=== PATIENT | male | born 1945 | race Caucasian/White ===

== ENCOUNTER 2021-05-12 11:47 | Outpatient (REF) | payer MEDICARE, SELFPAY | END 2021-05-12 11:48 | disposition home or self-care (01) | LOC: HO.HMGCLDS 11:47 | PROVIDERS: PCP Internal Medicine; Visit Provider Internal Medicine | DX: Z20.822 Contact with and (suspected) exposure to COVID-19 (principal) | CPT/HCPCS: C9803; U0003; U0005 ==

== ENCOUNTER 2023-08-20 11:02 | Outpatient (AMB) | payer MEDICARE, SELFPAY ==
--- NOTE | 2023-08-20 11:11 | MHC.OFFVIS ---
Intake Vital Signs 08/20/23 11:12 Height 5 ft 11 in Weight 213 lb 6.519 oz BMI 29.8 BP 181/80 H Blood Pressure Location Lt brachial Position Sitting Pulse 51 Pulse Source Pulse Oximeter Intake Visit Reasons: Dysphagia Intake Note: Pt presents to the office today for a new patient visit for dysphagia. Pt states he is having difficulty swallowing especially when he is eating or drinking that started after his heart surgery. Pt denies any other GI concerns at this time. Allergies No Known Allergies Allergy (Verified 08/20/23 11:13) HPI Dysphagia HPI Details 78-year-old male with past medical history of hypertension, hypercholesteremia, open heart surgery in 2019, aortic valve stenosis, arteriosclerotic heart disease, CKD, DJD, diabetes is here today for initial consultation. Patient was sent to us for evaluating of his recent symptoms. Patient has been having trouble swallowing, states that it does not happen all the time. Mainly happens when he eats meat. Patient denies having symptoms of any acid reflux, however he admits to having dyspepsia when he eats tomato sauce or certain food. Patient remembers that the last time he had trouble swallowing was after he had few beers and sampled few different Larsen's. Patient is not taking any PPI's or H2 blockers. Patient denies eating late at night. Patient reports that he is moving his bowels without any issues. Denies any melena, hematochezia, unintentional weight loss or ribbon like stools. [facility]LY [facility] Medical History (Updated 08/20/23 @ 11:59 by Shelia Umanzor [facility]) Obstructive sleep apnea CKD (chronic kidney disease) Gynecomastia Aortic valve stenosis Asthma Hypercholesteremia HTN (hypertension) Surgical History (Updated 08/20/23 @ 11:[address] MA) History of open heart surgery Family History Brother ASHD (arteriosclerotic heart disease) Diabetes mellitus, type II Cancer of prostate Social History Household Members: None Household Members Other:: Lives by himself Housing: House Alcohol intake: current Alcohol intake frequency: 0-2 drinks per day Alcohol type: beer Patient Tobacco Use Status: Former Tobacco user Tobacco use type: Cigarette Years Smoked: 24 Current occupational status: retired 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 Review of Systems Const Denies weight gain and Denies weight loss ENT Reports no additional complaints, Reports dysphagia and Denies odynophagia Card Reports no additional complaints Resp Reports no additional complaints GI Denies abdominal pain, Denies belching, Denies melena, Denies bloating, Denies change in bowel habits, Reports dysphagia, Denies excessive flatus, Reports dyspepsia (With certain food), Reports heartburn, Denies diarrhea, Denies loose stools, Denies nausea, Denies odynophagia and Denies vomiting Reports no additional complaints Musc Reports no additional complaints Neuro Reports no additional complaints Psych Reports no additional complaints Endo Reports no additional complaints Physical Exam Vital Signs: Last Vital Signs Pulse 51 08/20/23 11:12 BP 181/80 H 08/20/23 11:12 BMI result Body Mass Index 29.8 Const General: healthy appearing, no acute distress and well developed Nutritional Appearance: obese Orientation/consciousness: patient oriented x3 Resp Effort & Inspection: normal respiratory effort, able to speak in complete sentences, no tracheal deviation and symmetric chest movement Auscultation: clear to auscultation bilaterally Cardio Rate: regular rate GI Inspection: Yes normal to inspection, Yes distended and Yes obesity Palpation (GI): Soft to palpation, not firm, nontender and No hepatosplenomegaly present Auscultation: normal bowel sounds General: Yes no CVA tenderness Back/Spine/Pelvis Back: no CVA tenderness Skin General skin exam: elasticity normal, turgor normal and dry skin Neuro General: patient oriented x3 Psych Appearance: grossly normal Mental Status: mental status grossly normal Assessment & Plan Assessment & Plan (1) Dysphagia: Code(s): R13.10 - Dysphagia, unspecified Qualifiers: Dysphagia type: pharyngoesophageal phase Qualified Code(s): R13.14 - Dysphagia, pharyngoesophageal phase (2) Epigastric pain: Code(s): R10.13 - Epigastric pain (3) GERD (gastroesophageal reflux disease): Code(s): K21.9 - Gastro-esophageal reflux disease without esophagitis Qualifiers: Esophagitis presence: esophagitis presence not specified Qualified Code(s): K21.9 - Gastro-esophageal reflux disease without esophagitis Plan Patient will start pantoprazole. Most likely symptoms of dysphagia related to severe reflux. Patient does admit that his symptoms were worse after eating spicy chili and drinking. However patient does have a history of hiatal hernia repair in 2004. Will send him for barium swallow to evaluate reflux, hiatal hernia, sliding hiatal hernia, paraesophageal hernia, achalasia, Schatzki ring. Patient was encouraged to avoid dietary triggers and late night snacking. Staying upright for minimum 3 hours after meals discussed with patient. I will see him in 4 weeks and we will schedule him for upper endoscopy as he may need to require have dilation. Patient will need to be cleared before going for the procedure by Cardiology. Message sent to RN to call his visually impaired teacher office for clearance. Patient will call our office if he will have worsening symptoms or any other GI concerning symptoms. He is agreeable to this plan and verbalizes understanding of instructions. He was given the opportunity to ask questions and all questions answered. Thank you for allowing me to participate in his care Orders: Orders FL barium swallow Today R13.10 - Dysphagia, unspecified Medications: New pantoprazole take one tablet half an hour before breakfast 40 mg PO DAILY 30 tabs 2RF K21.9 - Gastro-esophageal reflux disease without esophagitis Coding Level of Care Code New Pt Level 4 (86693) Diagnoses Pharyngoesophageal dysphagia R13.14 Dysphagia type: pharyngoesophageal phase Epigastric pain R10.13 Gastroesophageal reflux disease, unspecified whether esophagitis present K21.9 Esophagitis presence: esophagitis presence not specified Time Spent (min) 45 Comment 30 minutes spent with patient and additional 15 minutes spent reviewing his records
[2023-08-20 11:12] VITALS: BP 181/80; PULSE 51; BMI 29.8
== END 2023-08-20 12:53 | disposition home or self-care (01) ==
PROVIDERS: PCP Internal Medicine; Visit Provider Nurse Practitioner Family
DX: R13.14 Dysphagia, pharyngoesophageal phase (principal); R10.13 Epigastric pain; K21.9 Gastro-esophageal reflux disease without esophagitis
CPT/HCPCS: 99204

== ENCOUNTER → 2023-08-20 11:02 | Outpatient (BNVA) | payer MEDICARE, SELFPAY | PROVIDERS: PCP Internal Medicine; Visit Provider Nurse Practitioner Family | DX: R13.14 Dysphagia, pharyngoesophageal phase (principal); R10.13 Epigastric pain; K21.9 Gastro-esophageal reflux disease without esophagitis | CPT/HCPCS: 99202 ==

== ENCOUNTER 2023-08-21 08:29 | Outpatient (REF) | payer MEDICARE, SELFPAY ==
--- NOTE | ~2023-08-21 | FL_ITS ---
EXAMINATION: FL BARIUM SWALLOW CLINICAL INFORMATION: Dysphagia COMPARISON: None available. TECHNIQUE: Fluoroscopic air contrast esophagram examination was performed utilizing standard techniques with thin and thick barium and effervescent granules. Numerous spot images were obtained. FINDINGS: Sternotomy wires are present, the majority of which are fractured. There are surgical clips in the mediastinum. There are degenerative disc changes with ventral osteophytes present involving C4-C7 without definite extrinsic compression upon the upper esophagus. Lateral cine images of the oropharynx and hypopharynx demonstrate normal swallow mechanism with normal epiglottic inversion and soft palate elevation. There is mild ballooning of the hypopharynx. There is persistent pooling of contrast in the vallecula and piriform sinuses. There is trace laryngeal penetration with thick barium. No glottic or subglottic aspiration identified. No nasopharyngeal reflux present. Hypopharyngeal structures appear normal without evidence of mass. A small lateral pharyngeal diverticulum is present (RF 1-4, image 21). 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 Distally, there is a short segment moderate narrowing at the GE junction, possibly a short segment benign stricture versus Schatzki's ring resulting in moderate narrowing (RF 1-5). Dual and single contrast images of the esophagus demonstrate somewhat patulous caliber. Normal mucosal pattern. No evidence of stricture, mass, or ulcerations identified. There is to and fro motion of barium column with nonpropulsive tertiary contractions noted throughout the esophagus. A small type I hiatal hernia is present. No significant gastroesophageal reflux was seen during the course of the examination and on reflux views. Limited views of the stomach demonstrate numerous small foci of contrast pooling without surrounding edema suggesting erosive gastritis. Mild thickening of the areae gastricae. No definite rugal fold thickening. Normal course of the duodenum. There is a second segment duodenal diverticulum. FLUOROSCOPY TIME: 3 minutes 32 seconds Number of Spot Images: 7 Number of Cine: 9 DOSE AREA PRODUCT: 1642 uGy-m2 (microgray-meter squared) FL/FL barium swallow IMPRESSION: 1. Trace laryngeal penetration with thick barium. 2. Tiny lateral pharyngeal diverticulum. 3. 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 4. Schatzki's ring versus short segment benign stricture causing moderate luminal narrowing at the GE junction. 5. Esophageal dysmotility. Esophagus is somewhat patulous. No mucosal abnormality. 6. Small type I hiatal hernia. 7. Suspect erosive gastritis. 8. Second segment duodenal diverticulum. Given above findings, recommend correlating with EGD. This procedure was performed by Jorge Patrick PA-C, and supervised by Dr. Munoz
== END 2023-08-21 08:30 | disposition home or self-care (01) ==
LOC: HO.XRAY 08:29
PROVIDERS: Visit Provider Nurse Practitioner Family
DX: R13.10 Dysphagia, unspecified (principal)
CPT/HCPCS: 74220

== ENCOUNTER → 2023-08-21 08:31 | Outpatient (BNV) | payer MEDICARE, SELFPAY | PROVIDERS: Visit Provider Physician Assistant Surgical | DX: R13.10 Dysphagia, unspecified (principal) | CPT/HCPCS: 74230 ==

== ENCOUNTER 2023-09-17 10:46 | Outpatient (AMB) | payer MEDICARE, SELFPAY ==
[2023-09-17 11:03] VITALS: BP 134/61; PULSE 61; BMI 29.1
--- NOTE | 2023-09-17 11:03 | A.OFFVIS_ITS ---
Intake Vital Signs 09/17/23 11:03 Height 5 ft 11 in Weight 208 lb 15.971 oz BMI 29.1 BP 134/61 Blood Pressure Location Lt brachial Position Sitting Pulse 61 Pulse Source Pulse Oximeter Intake Visit Reasons: 4 week follow up Intake Note: Pt presents to the office today for a 4 week follow up for dysphagia. Pt states he is doing much better than his last visit. He states his swallowing is much better and denies any other GI concerns. Allergies No Known Allergies Allergy (Verified 09/17/23 11:05) HPI 4 week follow up HPI Details LAST VISIT Dysphagia Epigastric pain GERD (gastroesophageal reflux disease) Plan Patient will start pantoprazole. Most likely symptoms of dysphagia related to severe reflux. Patient does admit that his symptoms were worse after eating spicy chili and drinking. However patient does have a history of hiatal hernia repair in 2004. Will send him for barium swallow to evaluate reflux, hiatal hernia, sliding hiatal hernia, paraesophageal hernia, achalasia, Schatzki ring. Patient was encouraged to avoid dietary triggers and late night snacking. Staying upright for minimum 3 hours after meals discussed with patient. I will see him in 4 weeks and we will schedule him for upper endoscopy as he may need to require have dilation. Patient will need to be cleared before going for the procedure by Cardiology. 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 Patient will call our office if he will have worsening symptoms or any other GI concerning symptoms. He is agreeable to this plan and verbalizes understanding of instructions. He was given the opportunity to ask questions and all questions answered. ? Thank you for allowing me to participate in his care Orders Orders FL barium swallow Today R13.10 Medications New pantoprazole take one tablet half an hour before breakfast 40 mg PO DAILY 30 tabs 2RF K21.9 TODAY'S VISIT Patient is here today for follow-up and to discuss barium swallow results. IMPRESSION: 1. Trace laryngeal penetration with thic k barium. 2. Tiny lateral pharyngeal diverticulum. 3. Moderate to severe cricopharyngeal ac halasia. 4. Schatzki's ring versus short segment benign stricture causing moderate luminal narrowing at the GE junction. 5. Esophageal dysmotility. Esophagus is somewhat patulous. No mucosal abnormality. 6. Small type I hiatal hernia. 7. Suspect erosive gastritis. 8. Second segment duodenal diverticulum. Patient reports that he is feeling significantly better with pantoprazole. Patient denies any dyspepsia, dysphagia or odynophagia. Barium swallow results discussed with patient. He is aware that he will need to go for upper endoscopy to further evaluate and for possible dilation. Patient denies any cardiac or respiratory symptoms. Patient is on low-dose aspirin. History of ARIANNA. PENDING SALE TO [facility] Medical History (Updated 09/17/23 @ 11:26 by Shelia Umanzor [facility]) Schatzki's ring Cricopharyngeal achalasia Obstructive sleep apnea CKD (chronic kidney disease) Gynecomastia Aortic valve stenosis Asthma Hypercholesteremia HTN (hypertension) Surgical History History of open heart surgery Family History Brother ASHD (arteriosclerotic heart disease) Diabetes mellitus, type II Cancer of prostate Social History Household Members: None Household Members Other:: Lives by himself Housing: House Alcohol intake: current Alcohol intake frequency: 0-2 drinks per day Alcohol type: beer Patient Tobacco Use Status: Former Tobacco user Tobacco use type: Cigarette Years Smoked: 24 Current occupational status: 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 Review of Systems Const Denies weight gain and Denies weight loss ENT Reports no additional complaints, Denies dysphagia and Denies odynophagia Card Reports no additional complaints Resp Reports no additional complaints GI Denies abdominal pain, Denies belching, Denies melena, Denies bloating, Denies change in bowel habits, Denies dysphagia, Denies excessive flatus, Denies dyspepsia, Denies heartburn, Denies diarrhea, Denies loose stools, Denies nausea, Denies odynophagia and Denies vomiting Reports no additional complaints Musc Reports no additional complaints Neuro Reports no additional complaints Psych Reports no additional complaints Endo Reports no additional complaints Physical Exam Vital Signs: Last Vital Signs Pulse 61 09/17/23 11:03 BP 134/61 09/17/23 11:03 BMI result Body Mass Index 29.1 Const General: healthy appearing, no acute distress and well developed Nutritional Appearance: obese Orientation/consciousness: patient oriented x3 Resp Effort & Inspection: normal respiratory effort, able to speak in complete sentences, no tracheal deviation and symmetric chest movement Auscultation: clear to auscultation bilaterally Cardio Rate: regular rate GI Inspection: Yes normal to inspection, No distended and Yes obesity Palpation (GI): Soft to palpation, not firm, nontender and No hepatosplenomegaly present Auscultation: normal bowel sounds General: Yes no CVA tenderness Back/Spine/Pelvis Back: no CVA tenderness Skin General skin exam: elasticity normal, turgor normal and dry skin Neuro General: patient oriented x3 Psych Appearance: grossly normal Mental Status: mental status grossly normal Results Reviewed Results Reviewed: BARRIUM SWALLOW IMPRESSION: 1. Trace laryngeal penetration with thick barium. 2. Tiny lateral pharyngeal diverticulum. 3. 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 4. Schatzki's ring versus short segment benign stricture causing moderate luminal narrowing at the GE junction. 5. Esophageal dysmotility. Esophagus is somewhat patulous. No mucosal abnormality. 6. Small type I hiatal hernia. 7. Suspect erosive gastritis. 8. Second segment duodenal diverticulum. Assessment & Plan Assessment & Plan (1) Cricopharyngeal achalasia: Code(s): K22.0 - Achalasia of cardia (2) Schatzki's ring: Code(s): K22.2 - Esophageal obstruction (3) Dysphagia: Code(s): R13.10 - Dysphagia, unspecified Qualifiers: Dysphagia type: pharyngoesophageal phase Qualified Code(s): R13.14 - Dysphagia, pharyngoesophageal phase (4) Epigastric pain: Code(s): R10.13 - Epigastric pain (5) GERD (gastroesophageal reflux disease): Code(s): K21.9 - Gastro-esophageal reflux disease without esophagitis Qualifiers: Esophagitis presence: esophagitis presence not specified Qualified Code(s): K21.9 - Gastro-esophageal reflux disease without esophagitis Plan Continue pantoprazole daily. Patient was encouraged to avoid dietary triggers and late night snacking. Staying upright for minimum 3 hours after meals discussed with patient. Patient will go for upper endoscopy for dilation and biopsies to rule out esophagitis, gastritis, duodenitis, H pylori, Carbajal's. Patient is on low-dose aspirin will hold aspirin for 7 days before the procedure. Denies any cardiac or respiratory symptoms. I will see patient after the procedure, sooner on as needed basis. Patient is agreeable to this plan and verbalizes understanding of instructions. He was given the opportunity to ask questions and all questions answered. Thank you for allowing me to participate in his care Coding Level of Care Code Est Pt Level 4 (95913) Diagnoses Cricopharyngeal achalasia K22.0 Schatzki's ring K22.2 Pharyngoesophageal dysphagia R13.14 Dysphagia type: pharyngoesophageal phase Epigastric pain R10.13 Gastroesophageal reflux disease, unspecified whether esophagitis present K21.9 Esophagitis presence: esophagitis presence not specified Time Spent (min) 40 Comment 25 minutes spent with patient and additional 15 minutes spent reviewing his records
== END 2023-09-17 11:26 | disposition home or self-care (01) ==
PROVIDERS: PCP Internal Medicine; Visit Provider Nurse Practitioner Family
DX: K22.0 Achalasia of cardia (principal); K22.2 Esophageal obstruction; R13.14 Dysphagia, pharyngoesophageal phase; R10.13 Epigastric pain; K21.9 Gastro-esophageal reflux disease without esophagitis
CPT/HCPCS: 99214

== ENCOUNTER → 2023-09-17 10:46 | Outpatient (BNVA) | payer MEDICARE, SELFPAY | PROVIDERS: PCP Internal Medicine; Visit Provider Nurse Practitioner Family | DX: K22.0 Achalasia of cardia (principal); K22.2 Esophageal obstruction; K21.9 Gastro-esophageal reflux disease without esophagitis; R13.14 Dysphagia, pharyngoesophageal phase; R10.13 Epigastric pain | CPT/HCPCS: 99212 ==